=== PATIENT | male | born 1990 | race Hispanic/Latino ===

== ENCOUNTER 2017-08-06 22:36 | Inpatient (IN) | payer BC, SELFPAY ==
[2017-08-06 23:02] LABS: #Lymphocytes 1.1 thou/uL (1.20-3.40); #Monocytes 0.5 thou/uL (0.11-0.59); #Neutrophils 12.6 thou/uL (1.40-6.50); %Basophils 0.1 % (0.0-1.0); %Eosinophils 0.3 % (0.0-10.0); %Lymphocytes 7.5 % (21.0-51.0); %Monocytes 3.3 % (0.0-10.0); Hematocrit 49.8 % (42.0-52.0); Mean Platelet Volume 7.1 fL (7.4-10.4); Red Blood Cell (RBC) Count 5.44 mill/uL (4.70-6.10); White Blood Cell (WBC) Count 14.2 thou/uL (4.8-10.8)
[2017-08-06 23:22] LABS: ALT (SGPT) 933 U/L (8-55); AST (SGOT) 450 U/L (5-34); Alkaline Phosphatase 149 U/L (40-150); Anion Gap 14 mmol/L (10-20); BUN (Urea Nitrogen) 18 mg/dL (8.9-20.6); Calc. Creatinine Clearance 0 mL/min (70-130); Carbon Dioxide 29 mmol/L (22-29); Chloride 101 mmol/L (98-107); Estimated GFR-MDRD 67; Globulin 3.6 g/dL (2.4-3.5); Protein, Total 8.3 g/dL (6.0-8.3)
[2017-08-07] MEDS ORDERED: Morphine 4 MG/ML VIAL ONE (00:59)
[2017-08-07 01:11] LABS: Lactic Acid - Sepsis 1.3 mmol/L (0.5-2.2)
[2017-08-07] MEDS ORDERED: Piperacillin/Tazobactam 4.5 GM in Sodium Chloride 0.9% 100 ML IVPB SCH (03:30)
[2017-08-07] MEDS ORDERED: Ondansetron HCl/PF 4 MG/2 ML Vial ONE (05:03)
[2017-08-07] MEDS ORDERED: Morphine 4 MG/ML VIAL SLOW IVP PRN (05:42)
[2017-08-07] MEDS ORDERED: Sodium Chloride 0.9% 1,000 ML IV SCH (05:43)
[2017-08-07] MEDS ORDERED: Ondansetron ODT 4 MG TAB SL PRN (05:43)
[2017-08-07] MEDS ORDERED: Ondansetron HCl/PF 4 MG/2 ML Vial IVP PRN ×2 (05:43→19:33)
[2017-08-07 06:48] VITALS: BMI 33.0
[2017-08-07 07:41] LABS: #Lymphocytes 0.6 thou/uL (1.20-3.40); #Monocytes 0.6 thou/uL (0.11-0.59); #Neutrophils 13.4 thou/uL (1.40-6.50); %Basophils 0.1 % (0.0-1.0); %Eosinophils 0.2 % (0.0-10.0); %Lymphocytes 3.8 % (21.0-51.0); %Monocytes 4.1 % (0.0-10.0); Hematocrit 47.8 % (42.0-52.0); Mean Platelet Volume 7.1 fL (7.4-10.4); Red Blood Cell (RBC) Count 5.23 mill/uL (4.70-6.10); White Blood Cell (WBC) Count 14.7 thou/uL (4.8-10.8)
--- NOTE | 2017-08-07 08:01 | RAD ---
PORTABLE AP CHEST XRAY: DATE: 08/07/17. HISTORY: Epigastric pain. FINDINGS: Cardiac silhouette and pulmonary vasculature are within normal limits. There is mild elevation of th e left hemidiaphragm. Lungs are clear. Osseous structures are intact. IMPRESSION: No acute cardiopulmonary process. POS: [facility]
[2017-08-07 08:03] LABS: ALT (SGPT) 915 U/L (8-55); AST (SGOT) 414 U/L (5-34); Alkaline Phosphatase 136 U/L (40-150); Anion Gap 10 mmol/L (10-20); BUN (Urea Nitrogen) 15 mg/dL (8.9-20.6); Bilirubin, Total 5.8 mg/dL (0.2-1.2); Calc. Creatinine Clearance 162 mL/min (70-130); Carbon Dioxide 30 mmol/L (22-29); Chloride 105 mmol/L (98-107); Estimated GFR-MDRD 81; Globulin 3.2 g/dL (2.4-3.5); Magnesium 2.2 mg/dL (1.6-2.6); Protein, Total 7.3 g/dL (6.0-8.3)
[2017-08-07 08:16] LABS: Lipase 2005 U/L (8-78)
--- NOTE | 2017-08-07 08:40 | HP ---
HISTORY OF PRESENT ILLNESS: Remberto Mckeon is a 27-year-old male jose antonio at [place], has been having epigastric right upper quadrant pain intermittently post-prandial for the past 2 years, he reported to [facility] emergency room a year ago and no radiological imaging was performed and was told he had gastroenteritis. He presents on this occasion with biliary pancreatitis, white coun t 14, hemoglobin 16. His bilirubin is 7 on admission, 5.8 this morning. AST 450 on admission, 414 t his morning. ALT 933 on admission, 915 this morning. Alkaline phosphatase is normal at 149. Lipase was 7785 on admission, 2004 this morning. He feels better by this morning after IV fluid hydration. The patient's ultrasound revealed gallstones with multiple shadowing. I am told that common bile du ct measurement was 6.9 mm. The patient also had a CAT scan of the abdomen and pelvis performed. ALLERGIES: None. TOBACCO: None. ALCOHOL: Rarely. MEDICATIONS: None. PAST SURGICAL AND MEDICAL HISTORY: Noncontributory. REVIEW OF SYSTEMS: Ten point noncontributory. PHYSICAL EXAMINATION: VITAL SIGNS: Height 6 feet 1 inch, weight 250 pounds, 33 BMI, temperature 97.8 degrees, pulse 62, re spirations 18, blood pressure 127/76. HEAD, EARS, EYES, NOSE AND THROAT: Unremarkable. LUNGS: Clear to auscultation. CARDIAC: Regular rate and rhythm without murmur or gallop. ABDOMEN: Soft. Mild tenderness in his upper abdomen with mild guarding, minimal, otherwise nondiste nded. EXTREMITIES: Unremarkable. ASSESSMENT AND PLAN: Biliary pancreatitis with history of biliary colic. Would recommend gastroente rology consultation. His liver function tests have improved. His bile duct is upper limits of patti l. We will await gastroenterology input and plan tomorrow laparoscopic cholecystectomy with cholangi ograms or if gastroenterology prefers, ERCP could be performed before laparoscopic cholecystectomy un devon the same anesthesia. Another alternative if gastroenterology feels necessary could have an ERCP today. We will await their opinion.
[2017-08-07] MEDS: Lactated Ringer's 1,000 ML IV SCH ×3 (09:15→21:27)
--- NOTE | 2017-08-07 13:04 | ULT ---
PRELIMINARY REPORT/[facility]/EMERGENCY AFTER HOURS PROCEDURE: EXAM: US Abdomen Limited, Right Upper Quadrant EXAM DATE/TIME: Exam ordered 08/07/2017 1:29 AM CLINICAL HISTORY: 27 years old, male; Pain; Other: Upper abd pain, vomitting x 2 days, elevated lipase and lfts TECHNIQUE: Real-time ultrasound of the right upper quadrant with image documentation. COMPARISON: No relevant prior studies available. FINDINGS: Liver: Hepatic steatosis. 1.3 cm of relative hypoechogenicity in the subcapsular right lobe of the li astrid may be fatty sparing but is indeterminate. Mass not excluded. Gallbladder: Inadequate visualization of the gallbladder. Suggestion of cholelithiasis. No perceptibl e gallbladder wall thickening or pericholecystic fluid. Sonographic Cherry sign is reported as positi ve. Common bile duct: Common bile duct measures 7 mm in caliber which is the upper limit of normal. No s tones. No dilation. Pancreas: Unremarkable as visualized. Right kidney: 4 cm complex right renal cyst. No stones. No hydronephrosis. IMPRESSION: 1. Extremely limited evaluation/visualization of the gallbladder. Probable cholelithiasis. No convinc ing evidence of cholecystitis. 2. Hepatic steatosis. 3. 1.3 cm of relative hypoechogenicity in the subcapsular right lobe of the liver may be fatty sparin g but is indeterminate. Mass not excluded. 4. 4 cm complex right renal cyst. Thank you for allowing us to participate in the care of your patient. Dictated and Authenticated by: Augustin Vega MD 08/07/2017 2:12 AM Central Time ([place] & [place]) FINAL REPORT EMERGENT AFTER HOURS RIGHT UPPER QUADRANT ULTRASOUND: DATE: 08/07/17. HISTORY: Upper abdominal pain and vomiting for 2 days. Elevated lipase and liver function tests. IMPRESSION: 1. Fatty infiltration of the liver. Small focal hypodense area measuring 1.3 cm in a subcapsular lo cation right hepatic lobe. This was not imaged on study of 07/06/13. While this could be a focal ar ea of fatty sparing, a mass in this region could not be excluded. CT abdomen is recommended for furt her evaluation. 2. Limited evaluation of the gallbladder. However, there are echogenic foci with posterior shadowin g, and this may be related to gallbladder with multiple gallbladder calculi and sludge. 3. Complex cyst superior pole right kidney measuring 4 cm. Further evaluation with CT scan abdomen following renal mass protocol is recommended. 4. The common duct is dilated measuring 0.7 cm. No intrahepatic biliary ductal dilatation is presen t. 5. Findings are in agreement with the preliminary report by [facility]. POS: [facility]
--- NOTE | 2017-08-07 13:09 | CT ---
PRELIMINARY REPORT/[facility]/EMERGENCY AFTER HOURS PROCEDURE: EXAM: CT Abdomen and Pelvis With Intravenous Contrast EXAM DATE/TIME: Exam ordered 08/07/2017 2:20 AM CLINICAL HISTORY: 27 years old, male; Pain; Abdominal pain; Generalized TECHNIQUE: Axial computed tomography images of the abdomen and pelvis with intravenous contrast. Coronal reformatted images were created and reviewed. CONTRAST: 100 mL of ISOVUE administered intravenously. COMPARISON: US Gallbladder RUQ 2017-08-07 01:29 FINDINGS: Lower thorax: No acute findings. ABDOMEN: Liver: Hepatic steatosis. Gallbladder and bile ducts: No choledocholithiasis or biliary ductal dilatation. Cholelithiasis/gallbladder sludge. No cholecystitis. Pancreas: Peripancreatic inflammation and fluid consistent with acute pancreatitis. No ductal dilatio n. Spleen: Unremarkable. No splenomegaly. Adrenals: Unremarkable. No mass. Kidneys and ureters: Round hypodense lesion of the right kidney does not meet strict CT criteria for a simple cyst and is indeterminate, potentially a hyperdense cyst. It measures 3.5 cm and 24 Hounsfie ld units. Stomach and bowel: Unremarkable. No obstruction. No mucosal thickening. Appendix: Normal appendix. PELVIS: Bladder: Unremarkable. No mass. Reproductive: Unremarkable as visualized. ABDOMEN and PELVIS: Intraperitoneal space: Unremarkable. No free air. No significant fluid collection. Bones/joints: No acute fracture. No dislocation. Soft tissues: Unremarkable. Vasculature: Unremarkable. No abdominal aortic aneurysm. Lymph nodes: Unremarkable. No enlarged lymph nodes. IMPRESSION: 1. Acute pancreatitis. 2. Indeterminate right renal lesion as above, potentially a hyperdense cyst. Thank you for allowing us to participate in the care of your patient. Dictated and Authenticated by: Augustin Vega MD 08/07/2017 2:33 AM Central Time ([place] & [place]) FINAL REPORT EMERGENT AFTER HOURS CT ABDOMEN AND PELVIS WITH IV CONTRAST: DATE: 08/07/17. HISTORY: Right upper quadrant abdominal pain which began at 2000 hours. IMPRESSION: 1. Acute pancreatitis. 2. Bi-lobed appearance of the gallbladder with sludge and likely multiple gallbladder calculi which were seen on recent ultrasound exam. 3. Complex custic lesion mid portion right kidney measuring 3.5 cm. This was also seen on sonograph ic evaluation and demonstrated complex appearance on that exam. This could potentially represent a h yperdense cyst. Given the complex and bi-lobed appearance of this cystic lesion, further evaluation with MRI is recommended to further characterize. 4. Diffuse fatty infiltration of the liver with fatty sparing adjacent to the gallbladder. The hypo echoic lesion seen within the subcapsular location right hepatic lobe is not delineated on this exam. This may also be better visualized on MRI examination. 5. Findings are in agreement with the preliminary report by [facility]. CODE T POS: [facility]
--- NOTE | 2017-08-07 16:33 | CON ---
DATE OF CONSULTATION: 08/07/2017 TYPE OF CONSULTATION: GI Inpatient Consultation note. REQUESTING PHYSICIAN: Murray Shirley M.D. REASON FOR CONSULTATION: Biliary pancreatitis. HISTORY OF PRESENT ILLNESS: eRmberto Mckeon is a 27-year-old man with no significant past medical history . He takes no medications on an outpatient basis. He presents with biliary pancreatitis and was adm itted last night for this. For maybe the past year, he has had some intermittent episodes of epigast letty and right upper quadrant pain. This episode started last night and was far more severe and persi stent. He had multiple episodes of nonbloody emesis. Upon presentation, ultrasound demonstrated cho lelithiasis and a borderline common bile duct of 6.9 mm. Lipase elevation to 7785 and LFT elevation with bilirubin 7, ALT over 900. He is feeling a bit better today with IV fluids and analgesia. He h as been n.p.o. He has been evaluated by Dr. Shirley who plans for cholecystectomy tomorrow. We are c onsulted for consideration of possible ERCP. The patient has not had any bowel movements today. He has no fever, no other complaints. REVIEW OF SYSTEMS: Full review of systems including constitutional, head, eyes, ears, nose, throat, GI, , cardiovascular, respiratory, musculoskeletal, and neurologic systems is negative except as no itz in the HPI. PAST MEDICAL HISTORY: Nothing significant. ALLERGIES: No known drug allergies. OUTPATIENT MEDICATIONS: None. INPATIENT MEDICATIONS: Morphine p.r.n., Zofran p.r.n., IV lactated ringers at 175 mL per hour. FAMILY HISTORY: Noncontributory. SOCIAL HISTORY: Alcohol use is rare. No smoking. PHYSICAL EXAMINATION: VITAL SIGNS: Temperature 98.4, pulse 66, blood pressure 129/87, 98% oxygen saturation on room air. GENERAL: A 27-year-old man lying in bed comfortably in no acute distress. SKIN: No jaundice, no rashes were palpable. EYES: No scleral icterus. Extraocular movements intact. ENT: Mucous membranes moist, no oral lesions. LYMPH: No submandibular or supraclavicular lymphadenopathy. THYROID: Nontender to palpation. HEART: Regular rate and rhythm. LUNGS: Clear to auscultation bilaterally. ABDOMEN: Bowel sounds hypoactive, soft, some tenderness to palpation in the epigastrium, but no guar ding or rebound tenderness. EXTREMITIES: No peripheral edema. VESSELS: Radial pulses 2+ bilaterally. NEUROLOGICAL: Cranial nerves II-XII intact bilaterally. No focal deficits. LABORATORY STUDIES: WBC 14.7, hemoglobin 16.3, platelets 254. Sodium 140, potassium 4.7, BUN 15, cr eatinine 1.08. Lipase initially 7785, now down to 2005. Total bilirubin initially 7, now down to 5. 8. Alkaline phosphatase is 136, AST 414, ALT 915, albumin 4.1 and LDH is elevated at 374. IMAGING STUDIES: Chest x-ray shows no acute processes. Abdominal ultrasound shows gallstones and co mmon bile duct at 6.9 mm, which is borderline. CT of the abdomen and pelvis demonstrates characteris tic changes of acute pancreatitis with the gallbladder it is full of sludge and stones. There is fat ty liver as well. There is also a complex right renal cyst measuring 3.5 cm. ASSESSMENT AND PLAN: 1. Biliary pancreatitis. 2. Cholelithiasis. The patient's lab and imaging findings are borderline with intermediate probability of common bile du ct stone. The liver function tests and lipase have declined a bit from yesterday and it is possible that his stone may have passed beyond the bile duct. I spoke with Dr. Shirley on the phone regarding planning. I would recommend that he proceed with planned cholecystectomy and perform intraoperative cholangiogram. This will be tomorrow. If the cholangiogram is positive, then he will let me know, a nd we can hopefully perform endoscopic retrograde cholangiopancreatography may be under the same anes thesia. If we can work the timing out, then would perform endoscopic retrograde cholangiopancreatogr aphy the following day. Otherwise, continue supportive care as you are doing. I discussed the risks and benefits of endoscopic retrograde cholangiopancreatography with the patient and he desires to pr oceed if necessary.
[2017-08-07] MEDS ORDERED: ISOVUE-370 76%-LOCM 1 ML ONE (17:15)
[2017-08-07] MEDS ORDERED: Acetaminophen 1,000 MG in Premix Bag 1 BAG IVPB PRN (19:33)
[2017-08-07] MEDS ORDERED: Ketorolac Tromethamine 30 MG/ML VIAL IVP PRN (19:34)
[2017-08-08 05:09] LABS: #Eosinphils 0.1 thou/uL (0.0-0.7); #Monocytes 0.9 thou/uL (0.11-0.59); #Neutrophils 11.5 thou/uL (1.40-6.50); %Basophils 0.1 % (0.0-1.0); %Eosinophils 0.8 % (0.0-10.0); %Lymphocytes 13.5 % (21.0-51.0); %Monocytes 5.9 % (0.0-10.0); Hematocrit 46.3 % (42.0-52.0); Mean Platelet Volume 7.3 fL (7.4-10.4); Red Blood Cell (RBC) Count 4.99 mill/uL (4.70-6.10); White Blood Cell (WBC) Count 14.5 thou/uL (4.8-10.8)
[2017-08-08 05:49] LABS: ALT (SGPT) 679 U/L (8-55); AST (SGOT) 187 U/L (5-34); Alkaline Phosphatase 122 U/L (40-150); Anion Gap 10 mmol/L (10-20); BUN (Urea Nitrogen) 16 mg/dL (8.9-20.6); Bilirubin, Total 2.3 mg/dL (0.2-1.2); Calc. Creatinine Clearance 156 mL/min (70-130); Carbon Dioxide 29 mmol/L (22-29); Chloride 105 mmol/L (98-107); Estimated GFR-MDRD 78; Globulin 2.9 g/dL (2.4-3.5); Lipase 684 U/L (8-78); Magnesium 1.9 mg/dL (1.6-2.6); Protein, Total 6.5 g/dL (6.0-8.3)
[2017-08-08] MEDS: Lactated Ringer's 1,000 ML IV SCH ×2 (06:13→12:02)
[2017-08-08 08:12] VITALS: TEMP 98.1
[2017-08-08] MEDS ORDERED: Bupivacaine/Epinephrine 0.25% 30 ML VIAL ONE (08:30)
[2017-08-08] MEDS ORDERED: Fentanyl 100 MCG/2 ML VIAL ONE (08:36)
[2017-08-08] MEDS ORDERED: Iothalamate Meglumine 60% 50 ML VIAL FS ONE (09:24)
--- NOTE | 2017-08-08 10:11 | OP ---
DATE OF PROCEDURE: 08/08/2017 PREOPERATIVE DIAGNOSES: Biliary pancreatitis, chronic cholecystitis, cholelithiasis, elevated liver function test, bile duct 4 mm. PROCEDURE: Laparoscopic video cholecystectomy. Normal intraoperative cholangiogram normal sized com mon bile duct, free flow of contrast into the duodenum without filling defects in the common hepatic , common bile, left and right hepatic ducts. SURGEON: Dr. Murray Shirley ANESTHESIA: General. Local 0.25% Marcaine with epinephrine, 30 mL. PROCEDURE: The patient was taken to the operating room where under general anesthesia, abdomen was c lipped of hair, prepared with ChloraPrep, draped in routine fashion. Local anesthetic infiltrated in to skin and subcutaneous tissue about each port site. 0.25% Marcaine with epinephrine was used, tota l volume used. Infraumbilical incision made and pneumoperitoneum to 15 mmHg obtained with the Veress needle, replacing it with a 5 port. Video laparoscope inserted. Right subxiphoid incision made and 11 port placed. Right subcostal incisions made mid clavicular anterior axillary lines and 5 ports p laced. Fundus of gallbladder grasped and reflected cephalad. Infundibulum grasped and reflected lat erally. Liver appeared to be normal. Cystic artery and duct dissected free. Critical view obtained with pericholecystic dissection 2/3 cystic plate. Cystic artery and duct dissected free and cystic artery double clipped proximally. Cystic duct singly clipped on the gallbladder side. Cholangiogram s obtained, inserted cholangiogram catheter into the cystic duct which had been opened with laparosco pic scissors. Cholangiogram was obtained using fluoroscopy revealing free flow of contrast into the duodenum without filling defects and a normal caliber common hepatic, common bile, left and right hep atic ducts. Cholangiocath removed. Cystic duct stump doubly clipped and the cystic artery and duct divided, gallbladder dissected free from the liver bed obtaining good hemostasis prior to division of final peritoneal attachments. Gallbladder and contents removed and submitted to pathology. Irrigan t and pneumoperitoneum evacuated. All instruments removed and all skin incisions approximated with i nterrupted subdermal 4-0 Monocryl and DermaGlue applied.
[2017-08-08] MEDS ORDERED: Morphine Sulfate 2 MG/ML SYRINGE SLOW IVP PRN (10:19)
[2017-08-08] MEDS ORDERED: Promethazine HCl 25 MG/ML VIAL IM PRN (10:19)
[2017-08-08] MEDS ORDERED: Ondansetron HCl/PF 4 MG/2 ML Vial IVP PRN (10:19)
[2017-08-08] MEDS ORDERED: HYDROmorphone 2 MG/ML VIAL SLOW IVP PRN (10:19)
[2017-08-08] MEDS ORDERED: Promethazine HCl 25 MG/ML VIAL SLOW IVP PRN (10:19)
[2017-08-08] MEDS ORDERED: Meperidine HCl/PF 25 MG/ML VIAL SLOW IVP PRN (10:19)
[2017-08-08] MEDS ORDERED: Ibuprofen 600 MG TAB PO PRN (11:25)
[2017-08-08] MEDS ORDERED: Acetaminophen 500 MG TAB PO PRN (11:25)
[2017-08-08] MEDS ORDERED: traMADol HCl 50 MG TAB PO PRN ×2 (11:25)
[2017-08-08 12:35] VITALS: BP 131/77
--- NOTE | 2017-08-08 13:37 | RAD ---
INTRAOPERATIVE CHOLANGIOGRAM FLUOROSCOPY: HISTORY: Cholecystitis. FINDINGS: Intraoperative fluoroscopy is provided for cholangiogram as performed by Dr. Shirley. Three spot fluo roscopic images show operative hardware to overlie the gallbladder fossa. There is contrast opacific ation of a nondilated common duct. No filling defects are apparent. Contrast extends into the duode num and pancreatic. Fluoro time=8 seconds. POS: [facility]
--- NOTE | 2017-08-08 13:51 | DIS ---
DISCHARGE DIAGNOSES: Biliary pancreatitis, cholelithiasis, elevated liver function test, bile duct 4 mm by ultrasound. SURGEON: Dr. Murray Shirley. CONSULTATION: Dr. Refugio Rubalcava, Gastroenterology. HISTORY: A 27-year-old male with more than 2-year history of epigastric right upper quadrant pain, e pisodic postprandial, presented to emergency room at [facility] last year without imagin g with similar symptoms. He continued to have symptoms, presented on this occasion, found to have ch olecystitis and cholelithiasis and biliary pancreatitis. Ultrasound revealed normal caliber bile miroslava t with bilirubin and transaminases elevated, lipase elevated. By the time, he was admitted overnight , repeated his lipase within 12 hours. Pancreatitis started improving. His pain was improving. Gas troenterology consultation with Dr. Rubalcava undertaken. He was given IV fluids, intravenous antibiotics , and decision was made for intraoperative cholangiograms and ERCP based on these whether need or not . The patient underwent laparoscopic video cholecystectomy on 08/08/2017 with normal cholangiograms. Postoperatively, convalesced, tolerate his diet and is being discharged home with [id number] Tylenol and Motrin for pain and Ultram prescription given as needed. Note given for him to take off work for one week. Diet and activity as tolerated without restrictions. Follow up in my office in 2 -3 weeks.
== END 2017-08-08 17:15 | disposition home or self-care (01) | DRG 417 ==
LOC: ERS 22:36 → SURG A 08-07 02:55
PROVIDERS: ADMIT Specialist; ATTEND Specialist
PROC: 0FT44ZZ Resection of Gallbladder, Percutaneous Endoscopic Approach (ICD-10-PCS; principal; 2017-08-07)
PROC: BF10YZZ Fluoroscopy of Bile Ducts using Other Contrast (ICD-10-PCS; 2017-08-07)
DX: K80.10 Calculus of gallbladder with chronic cholecystitis without obstruction (principal); K85.10 Biliary acute pancreatitis without necrosis or infection; E66.9 Obesity, unspecified; Z68.33 Body mass index [BMI] 33.0-33.9, adult
CPT/HCPCS: 36415; 36416; 47532; 71010; 74177; 76705; 80053; 83605; 83615; 83690; 83735; 85025; 88304; 93005; 96361; 96365; 96375; J0131; J1610; J1885; J2270; J2405; J2543; J3010; J7050; Q9961